=== PATIENT | female | born 1940 | race Caucasian/White ===

== ENCOUNTER 2020-04-27 09:11 | Emergency (ER) | payer MEDICARE, OTHER, SELFPAY ==
[2020-04-27 09:13] VITALS: BP 167/65; PULSE 65; RESP 18; TEMP 36.6; O2SAT 95; BMI 29.9
--- NOTE | 2020-04-27 09:16 | CT_ITS ---
STUDY: CT BRAIN WITHOUT CONTRAST REASON FOR EXAM: Female, 79 years old. FALL RADIATION DOSAGE (If Supplied By Facility): CTDIvol = ( 44.99 ) mGy, DLP = ( 779.24 ) mGycm TECHNIQUE: Transaxial CT imaging of the brain was performed without administration of intravenous contrast material. Individualized dose optimization techniques were used for this CT. COMPARISON: No relevant priors. FINDINGS: Normal soft tissue structures. Normal calvarium. There is moderate cerebral atrophy with widening of the extra-axial spaces and ventricular dilatation. There are areas of decreased attenuation within the white matter tracts of the supratentorial brain, consistent with microvascular disease changes. Normal basal ganglia and thalami. Normal brainstem. Normal cerebellum. There is no intracranial hemorrhage. There are no findings of an acute ischemic infarction. Normal visualized paranasal sinuses. CT/Brain/Head without Contrast IMPRESSION: Chronic involutional changes of the brain. Electronically Signed: Nirav Yanez MD at 10:12 EST Tel , Service support ,
--- NOTE | 2020-04-27 09:16 | CT_ITS ---
STUDY: CT CERVICAL SPINE WITHOUT CONTRAST REASON FOR EXAM: Female, 79 years old. FALL RADIATION DOSAGE (If Supplied By Facility): CTDIvol = ( 28.92 ) mGy, DLP = ( 604.92 ) mGycm TECHNIQUE: High resolution transaxial imaging was performed without contrast material. Sagittal and coronal images were reconstructed. Individualized dose optimization techniques were used for this CT. COMPARISON: None FINDINGS: Normal craniovertebral junction. Normal anterior atlantoaxial articulation. Normal odontoid process. There is straightening of the normal cervical lordosis. Normal vertebral bodies and posterior osseous elements. C2-3: Mild left facet hypertrophy with ankylosis of facet joint. No spinal stenosis or neural foraminal stenosis. C3-4: Normal endplates. Normal disc height and morphology. Normal central canal and intervertebral neuroforamina. C4-5: Normal endplates. Normal disc height and morphology. Normal central canal and intervertebral neuroforamina. C5-6: Normal endplates. Normal disc height and morphology. Normal central canal and intervertebral neuroforamina. C6-7: Normal endplates. Normal disc height and morphology. Normal central canal and intervertebral neuroforamina. C7-T1: Normal endplates. Normal disc height and morphology. Normal central canal and intervertebral neuroforamina. Normal visualized soft tissue structures. CT/Spine Cervical without Contras IMPRESSION: No acute fracture or subluxation. Straightening of the normal lordotic curvature possibly from muscular spasm. Electronically Signed: Nirav Yanez MD at 10:15 EST Tel , Service support ,
--- NOTE | 2020-04-27 09:16 | CT_ITS ---
STUDY: CT FACIAL BONES WITHOUT CONTRAST REASON FOR EXAM: Female, 79 years old. FALL RADIATION DOSAGE (If Supplied By Facility): CTDIvol = ( 29.38 ) mGy, DLP = ( 547.46 ) mGycm TECHNIQUE: The patient was scanned in a multi detector CT scanner. Sagittal and coronal images were reconstructed. Individualized dose optimization techniques were used for this CT. COMPARISON: None. FINDINGS: Normal soft tissue structures. Normal orbital owens and orbital contents. Normal nasal bones and anterior nasal spine. Normal facial bones. There are fractures through the mandibular condyles bilaterally which appear corticated consistent with chronic fractures. Clinical correlation is recommended. Normal visualized paranasal sinuses. CT/Sinus/Facial Bone IMPRESSION: Suspect chronic fractures of the mandibular condyles bilaterally without definite acute facial fracture. Clinical correlation is recommended. Electronically Signed: Nirav Yanez MD at 10:19 EST Tel , Service support ,
[2020-04-27] MEDS: Diphth,Pertuss(Acell),Tet Vac 0.5 ML Vial IM (09:21)
[2020-04-27] MEDS: Lidocaine 1% (20 ml mdv) 20 ML Vial 10 ML INFILT (09:22)
--- NOTE | 2020-04-27 09:31 | ED.DCSUM_ITS ---
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 Unknown how long she was on the ground but EMS states that nursing reported that multiple people were on their call light stating that she had just fallen. It was theorized by staff that she fell down to her knees and then struck her chin on the ground. She was able to get up and walk with assistance with the nurses. They note lacerations to the chin and lip. The patient states her jaw hurts. She states that her jaw does not seem to close appropriately. Past Medical History - Allergies and Home Meds Allergies/Adverse Reactions: Allergies Penicillins Allergy (Verified 04/27/20 09:18) Hives Primary Care Physician: Misbah James MD [Primary Care Provider] - Past Medical History: - - GERD diabetes hypertension hypercholesterolemia frequent falls. Lives: Group Home Smoking Status: Never smoker Drugs: None Review of Systems General: Denies: Chills, Fever, Sweats Eyes: Denies: Visual changes - bilaterally, Diplopia ENT: Denies: Rhinorrhea, Sore throat Cardiovascular: Denies: Chest pain, Palpitations Respiratory: Denies: Dyspnea, Cough, Dyspnea on exertion Gastrointestinal: Denies: Abdominal pain, Nausea, Vomiting, Diarrhea, Melena, Hematochezia Genitourinary: Denies: Dysuria, Hematuria, Frequency Musculoskeletal: Denies: Back pain, Extremity Pain Skin: Denies: Rash, Wounds Neurological: Denies: Headache, Weakness, Numbness Physical Exam Vital Signs/Narrative: Vital Signs Temp Pulse Resp BP Pulse Ox 04/27/20 09:13 97.8 F 65 18 167/65 H 95 Inital Vital Signs reviewed: Yes General: Well nourished, Well developed, Obese, No Acute Distress Head: Normocephalic, Trauma - There is a 1 cm chin laceration. There is 1/2 cm vertical philtrum laceration. There is associated contusion of the lip. Eyes: Perrl, EOMI ENT: Moist mucous membranes, No rhinorrhea, - - bilateral ttp and swelling at the TMJ. + Malocclusion and pain with opening closing. Midface appears stable. Neck: Supple, - - Tender to palpation posteriorly along the occiput and upper cervical spine. Cardiovascular: Regular rate, Regular rhythm, No murmurs Respiratory: No distress, CTA bilaterally, Chest nontender Abdomen: Soft, Nontender, Nondistended, Normal bowel sounds Back: Nontender, Normal Inspection Extremities: Nontender, No edema Skin: Normal color, No rash, Trauma - Contusion bilateral knees Neurological: Cranial nerves II-XII grossly intact, Normal Strength, Normal Sensation, Lethargic - Opens eyes to voice responds appropriately with yes no questions. Psychological: Normal affect, Normal Mood Diagnostic/Tx/Re-eval Clinical Impression(s) from Imaging Studies Brain CT 04/27/20 09:16 IMPRESSION: Chronic involutional changes of the brain. Electronically Signed: Nirav Yanez MD at 10:12 EST Tel , Service support , Cervical Spine CT 04/27/20 09:16 IMPRESSION: No acute fracture or subluxation. Straightening of the normal lordotic curvature possibly from muscular spasm. Electronically Signed: Nirav Yanez MD at 10:15 EST Tel , Service support , Facial/Sinus 04/27/20 09:16 IMPRESSION: Suspect chronic fractures of the mandibular condyles bilaterally without definite acute facial fracture. Clinical correlation is recommended. Electronically Signed: Nirav Yanez MD at 10:19 EST Tel , Service support , - Medical Decision Making The chin laceration was locally anesthetized using 1% lidocaine washed with Shur-Clens and explored. Was closed using 3 simple interrupted 6-0 Ethilon sutures. The philtrum laceration was also anesthetized using 1% lidocaine locally and then a single 6-0 Ethilon suture was placed after cleansing. Patient tolerated procedure well. Reviewing the CTs of her head and neck these are negative for acute. CT of the facial bones demonstrates bilateral mandibular condyle fractures. Possibly chronic. However the patient is swollen in the TMJ region notes pain there when she attempts to close and does appear to have a degree of malocclusion. [facility] states that she normally does not have any speaking or closing her jaw and can typically eat soft diet. Therefore I would conclude that this is most likely an acute fracture. We do not have maxillofacial plastic surgery here. I spoke with the patient she does not have a preference for trauma center. I spoke with [facility] and the patient will be transferred there. ED Disposition - Plan for ED Patient: Disposition: [facility] Diagnosis: Face lacerations, Mandibular fracture, closed, Contusion of knee Referrals: Misbah James MD [Primary Care Provider] -
[2020-04-27 11:24] VITALS: BP 173/99; PULSE 68; RESP 18; TEMP 36.4; O2SAT 99
== END 2020-04-27 12:02 | disposition short-term general hospital (02) ==
PROVIDERS: Emergency Provider Emergency Medicine; PCP Family Medicine
DX: S01.511A Laceration without foreign body of lip, initial encounter (principal); S01.81XA Laceration without foreign body of other part of head, initial encounter; S80.02XA Contusion of left knee, initial encounter; S80.01XA Contusion of right knee, initial encounter; W18.30XA Fall on same level, unspecified, initial encounter; Y93.89 Activity, other specified; Y92.129 Unspecified place in nursing home as the place of occurrence of the external cause; Y99.9 Unspecified external cause status; E11.9 Type 2 diabetes mellitus without complications; E78.00 Pure hypercholesterolemia, unspecified; I10 Essential (primary) hypertension; K21.9 Gastro-esophageal reflux disease without esophagitis; Z88.0 Allergy status to penicillin; E66.9 Obesity, unspecified; Z23 Encounter for immunization
CPT/HCPCS: 12011; 70450; 70486; 72125; 87426; 90715; 99285

== ENCOUNTER 2020-05-08 13:49 | Emergency (ER) | payer MEDICARE, OTHER, SELFPAY ==
[2020-05-08 13:49] VITALS: BP 125/57; PULSE 64; RESP 16; TEMP 36.7; O2SAT 98; BMI 35.9
--- NOTE | 2020-05-08 14:30 | ED.RN ---
[facility] REPORTS UNWITNESSED FALL OUT OF CHAIR. [facility] REPORTS CHRONIC PAIN TO RT ARM AND MANDIBLE FX FROM PREV FALL. DR GALINDO INFORMED.
--- NOTE | 2020-05-08 14:37 | CT_ITS ---
STUDY: CT BRAIN WITHOUT CONTRAST REASON FOR EXAM: Female, 79 years old. FALL, LAC TO FOREHEAD RADIATION DOSAGE (If Supplied By Facility): CTDIvol = ( 44.99 ) mGy, DLP = ( 782.05 ) mGycm TECHNIQUE: Transaxial CT imaging of the brain was performed without administration of intravenous contrast material. Individualized dose optimization techniques were used for this CT. COMPARISON: No relevant priors. FINDINGS: There is frontal soft tissue injury. Normal calvarium. There are acute bilateral mandibular condyle fractures. There is mild cerebral atrophy with widening of the extra-axial spaces and ventricular dilatation. There are areas of decreased attenuation within the white matter tracts of the supratentorial brain, consistent with microvascular disease changes. Normal basal ganglia and thalami. Normal brainstem. Normal cerebellum. There is no intracranial hemorrhage. There are no findings of an acute ischemic infarction. Normal visualized paranasal sinuses. CT/Brain/Head without Contrast IMPRESSION: Chronic involutional changes of the brain. Mandible fractures. Electronically Signed: Isaiah Roach MD at 15:48 EST , Service support ,
--- NOTE | 2020-05-08 14:39 | CT_ITS ---
STUDY: CT CERVICAL SPINE WITHOUT CONTRAST REASON FOR EXAM: Female, 79 years old. FALL, LAC TO FOREHEAD RADIATION DOSAGE (If Supplied By Facility): CTDIvol = ( 28.62 ) mGy, DLP = ( 537.70 ) mGycm TECHNIQUE: High resolution transaxial imaging was performed without contrast material. Sagittal and coronal images were reconstructed. Individualized dose optimization techniques were used for this CT. COMPARISON: None FINDINGS: Normal craniovertebral junction. There are degenerative changes of the anterior atlantoaxial articulation. Normal odontoid process. There is straightening of the normal cervical lordosis. There is no acute cervical fracture. There are acute bilateral mandible fractures. Normal vertebral bodies and posterior osseous elements. C2-3: Normal endplates. Normal disc height and morphology. Facet spurring on the left. Normal central canal and intervertebral neuroforamina. C3-4: Normal endplates. Normal disc height and morphology mild facet spurring. Central canal and intervertebral neuroforamina. C4-5: Normal endplates. Normal disc height and morphology. Normal central canal and intervertebral neuroforamina. C5-6: Normal endplates. Normal disc height and morphology. Normal central canal and intervertebral neuroforamina. C6-7: Normal endplates. Normal disc height and morphology. Normal central canal and intervertebral neuroforamina. C7-T1: Normal endplates. Normal disc height and morphology. Normal central canal and intervertebral neuroforamina. Normal visualized soft tissue structures. There are atherosclerotic calcifications. CT/Spine Cervical without Contras IMPRESSION: Mild degenerative change. No cervical spine fracture. Mandible fractures. Electronically Signed: Isaiah Roach MD at 15:51 EST , Service support ,
--- NOTE | 2020-05-08 14:40 | EKG12_ITS ---
Test Reason : FALL Blood Pressure : / mmHG Vent. Rate : 065 BPM Atrial Rate : 065 BPM P-R Int : 304 ms QRS Dur : 096 ms QT Int : 394 ms P-R-T Axes : -21 -48 -06 degrees QTc Int : 409 ms Sinus rhythm with 1st degree A-V block Left axis deviation Aleksandr- Septal infarct , age undetermined , cannot be excluded Abnormal ECG Confirmed by DEE DEE BIRD, MARRY ([id number]), book editor BOLA HUMPHRIES ([id number]) on 05/11/2020 10:36:58 AM Referred By: CAITLYN Confirmed By:MARRY FUNEZ MD
--- NOTE | 2020-05-08 15:30 | RAD_ITS ---
STUDY: X-RAY CHEST REASON FOR EXAM: Female, 79 years old. FALL, LACERATION TO HEAD AND RIGHT ARM PAIN TECHNIQUE: Single AP portable view of the chest. COMPARISON: None. FINDINGS: The lungs are clear and expanded. There is no demonstrated pleural abnormality. Normal size heart. Normal mediastinum and alvino. Normal visualized pulmonary arteries. There is atherosclerotic calcification of the aortic arch with tortuosity. There is demineralization of the osseous structures. There is right proximal humerus fracture status post ORIF. There is no demonstrated abnormality of the visualized soft tissue structures of the upper abdomen. RAD/Chest 1 View (Portable) IMPRESSION: Degenerative changes, as described above. No demonstrated acute cardiopulmonary process. Electronically Signed: Isaiah Roach MD at 15:57 EST , Service support ,
--- NOTE | 2020-05-08 15:30 | RAD_ITS ---
STUDY: X-RAY - RIGHT HUMERUS REASON FOR EXAM: Female, 79 years old. FALL, LACERATION TO HEAD AND RIGHT ARM PAIN TECHNIQUE: Frontal and lateral view(s) of the humerus. COMPARISON: None. FINDINGS: There is diffuse demineralization of the humerus. There is proximal humerus fracture status post ORIF with fixation plate and screws. There is no demonstrated soft tissue abnormality. RAD/Humerus min 2 Views IMPRESSION: Healing proximal humerus fracture status post ORIF. Electronically Signed: Isaiah Roach MD at 15:59 EST , Service support ,
--- NOTE | 2020-05-08 15:30 | RAD_ITS ---
STUDY: X-RAY - RIGHT RADIUS AND ULNA REASON FOR EXAM: Female, 79 years old. PAIN S/P FALL AT [facility] TECHNIQUE: 2 view(s) of the forearm. COMPARISON: None. FINDINGS: There is no demonstrated soft tissue swelling. There are vascular calcifications. There is demineralization of the radius. There is subtle lucency of the radial head with and probable artifact from overlapping structures versus fracture. There is demineralization of the ulna. RAD/Forearm 2 Views IMPRESSION: Demineralization. Lucency of the radial head with probable artifact from overlapping structures versus less likely fracture. Electronically Signed: Isaiah Roach MD at 16:01 EST , Service support ,
[2020-05-08 15:33] LABS: Absolute Lymphocyte Count 2.76 X10^3/uL (0.83-4.51); Absolute Neutrophil Count 4.1 X10^3/uL (2.0-7.7); Basophil# 0.02 X10^3/uL; Basophil% 0.2 % (0-1); Eosinophil# 0.73 X10^3/uL; Eosinophils% 8.6 % (0-5); Hematocrit 36.6 % (37-47); Hemoglobin 11.7 g/dL (12.0-15.0); Lymphocyte # 2.76 X10^3/ul (4.0); Lymphocyte % 32.7 % (19-41); Mean Corpuscular Hgb 29.7 pg (27.0-32.0); Mean Corpuscular Volume 92.9 fL (81-99); Mean Platelet Vol. 9.9 fl (6.2-12.0); Monocyte# 0.76 X10^3/uL; NRBC Flagged by Analyzer 0 % (0-5); Neutrophil # 4.13 X10^3/uL (2.7-7.7); Neutrophil % 48.9 % (47-70); Platelet Count 305 K/mm3 (150-450); RBC Distribution Width CV 14.6 % (11.6-14.6); RBC Distribution Width SD 49.5 fl (35.1-43.9); Red Blood Count 3.94 M/mm3 (4.2-5.4); White Blood Count 8.5 K/mm3 (4.4-11.0)
[2020-05-08 15:40] LABS: Anion Gap 4 (5-15); BUN 13 mg/dL (7-18); CPK Total, Creatine Kinase 40 U/L (26-192); Calcium,Total 9.7 mg/dL (8.5-10.1); Chloride 108 mmol/L (98-107); Creatinine, Serum 0.93 mg/dL (0.55-1.02); EST Glomerular Filtration Rate 62 mL/min (>60); Est Glom Filt Rate - Afr Amer 75 mL/min (>60); Estimated Creatinine Clearance 34.08 ml/min; Glucose 126 mg/dL (74-106); Potassium 4.5 mmol/L (3.5-5.1); Sodium Level 138 mmol/L (136-145)
[2020-05-08] MEDS: Lidocaine/Epi/Tetracaine 50 ML 1 APPLIC TOPICAL (16:00)
--- NOTE | 2020-05-08 16:04 | ED.DCSUM_ITS ---
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 Per report, staff walked by the room and saw her on the ground. Is no exactly clear how she fell. Patient did have a fall earlier this month where she broke her mandible. She is not on any anticoagulation. Patient did sustain a laceration to her forehead and is complain of pain in that area but denies any other complaints. On exam she does start to complain of right arm pain as well. Nursing staff does state that this seems to be more of a chronic complaint. No report of any recent fevers or change in mentation. Patient appears to be at her baseline. Past Medical History - Allergies and Home Meds Allergies/Adverse Reactions: Allergies Penicillins Allergy (Verified 05/08/20 13:53) Hives Primary Care Physician: Misbah James MD [Primary Care Provider] - Past Medical History: - - GERD, diabetes mellitus, hyperlipidemia, anxiety, l egally blind, dementia Lives: [facility] Smoking Status: Never smoker Review of Systems ROS: Unable to Obtain - Limited secondary to patient's dementia General: Denies: Chills, Fever Eyes: Reports: - - Legally blind Musculoskeletal: Reports: - - Right arm pain Skin: Reports: Abrasions - Forehead laceration. Denies: Rash, Wounds Neurological: Reports: Headache. Denies: Weakness Physical Exam Vital Signs/Narrative: Vital Signs Temp Pulse Resp BP Pulse Ox 05/08/20 13:49 98.0 F 64 16 125/57 H 98 Inital Vital Signs reviewed: Yes General: Well nourished, Well developed, No Acute Distress Head: Normocephalic, Trauma - forehead laceration ENT: Moist mucous membranes, No rhinorrhea, TM's clear, - - No hemo-tympanum, no septal hematoma Neck: Supple, Nontender Cardiovascular: Regular rate, Regular rhythm, No murmurs Respiratory: No distress, CTA bilaterally, Chest nontender Abdomen: Soft, Nontender, Nondistended, Normal bowel sounds Back: Nontender, Normal Inspection Extremities: No edema, Tenderness - Fuhs tenderness of the right extremity with no pinpoint area of pain Skin: Normal color, No rash, Trauma - 4 cm irregular full-thickness laceration in the middle of the forehead, no active bleeding Neurological: Alert, Cranial nerves II-XII grossly intact, Normal Strength, Normal Sensation, Disoriented - Oriented x1?this appears to be her baseline Psychological: Normal affect, Normal Mood Diagnostic/Tx/Re-eval Chest X-Ray - ED: 1 View, Read by ED Physician, Read by Radiologist, No Acute Disease Clinical Impression(s) from Imaging Studies Brain CT 05/08/20 14:37 IMPRESSION: Chronic involutional changes of the brain. Mandible fractures. Electronically Signed: Isaiah Roach MD at 15:48 EST , Service support , Cervical Spine CT 05/08/20 14:39 IMPRESSION: Mild degenerative change. No cervical spine fracture. Mandible fractures. Electronically Signed: Isaiah Roach MD at 15:51 EST , Service support , Chest X-Ray 05/08/20 15:30 IMPRESSION: Degenerative changes, as described above. No demonstrated acute cardiopulmonary process. Electronically Signed: Isaiah Roach MD at 15:57 EST , Service support , Forearm X-Ray 05/08/20 15:30 IMPRESSION: Demineralization. Lucency of the radial head with probable artifact from overlapping structures versus less likely fracture. Electronically Signed: Isaiah Roach MD at 16:01 EST , Service support , Humerus X-Ray 05/08/20 15:30 IMPRESSION: Healing proximal humerus fracture status post ORIF. Electronically Signed: Isaiah Roach MD at 15:59 EST , Service support , Laboratory Data 05/08/20 05/08/20 05/08/20 15:10 15:10 15:10 WBC 8.5 RBC 3.94 L Hgb 11.7 L Hct 36.6 L MCV 92.9 MCH 29.7 MCHC 32.0 RDW Std Deviation 49.5 H RDW Coeff of Naye 14.6 Plt Count 305 MPV 9.9 Immature Gran % (Auto) 0.600 Neut % (Auto) 48.9 Lymph % (Auto) 32.7 [place] % (Auto) 9.0 Eos % (Auto) 8.6 H Baso % (Auto) 0.2 Absolute Neuts (auto) 4.1 Absolute Lymphs (auto) 2.76 Nucleated RBC % 0 PT 13.0 INR 1.0 Sodium 138 Potassium 4.5 Chloride 108 H Carbon Dioxide 26.0 Anion Gap 4 L BUN 13 Creatinine 0.93 Estim Creat Clear Calc 34.08 Est GFR (MDRD) Af Amer 75 Est GFR (MDRD) Non-Af 62 BUN/Creatinine Ratio 14.0 Glucose 126 H Calcium 9.7 Total Creatine Kinase 40 Troponin I < 0.015 Cardiac Rehab Phase I Labs WBC 8.5 K/mm3 (4.4-11.0) 05/08/20 15:10 RBC 3.94 M/mm3 (4.2-5.4) L 05/08/20 15:10 Hgb 11.7 g/dL (12.0-15.0) L 05/08/20 15:10 Hct 36.6 % (37-47) L 05/08/20 15:10 MCV 92.9 fL (81-99) 05/08/20 15:10 MCH 29.7 pg (27.0-32.0) 05/08/20 15:10 MCHC 32.0 g/dL (32-36) 05/08/20 15:10 RDW Std Deviation 49.5 fl (35.1-43.9) H 05/08/20 15:10 RDW Coeff of Naye 14.6 % (11.6-14.6) 05/08/20 15:10 Plt Count 305 K/mm3 (150-450) 05/08/20 15:10 MPV 9.9 fl (6.2-12.0) 05/08/20 15:10 Immature Gran % (Auto) 0.600 % (0.0-0.9) 05/08/20 15:10 Neut % (Auto) 48.9 % (47-70) 05/08/20 15:10 Lymph % (Auto) 32.7 % (19-41) 05/08/20 15:10 [place] % (Auto) 9.0 % (0-10) 05/08/20 15:10 Eos % (Auto) 8.6 % (0-5) H 05/08/20 15:10 Baso % (Auto) 0.2 % (0-1) 05/08/20 15:10 Absolute Neuts (auto) 4.1 X10^3/uL (2.0-7.7) 05/08/20 15:10 Absolute Lymphs (auto) 2.76 X10^3/uL (0.83-4.51) 05/08/20 15:10 Nucleated RBC % 0 % (0-5) 05/08/20 15:10 PT 13.0 SECONDS (11.7-14.9) 05/08/20 15:10 INR 1.0 05/08/20 15:10 Sodium 138 mmol/L (136-145) 05/08/20 15:10 Potassium 4.5 mmol/L (3.5-5.1) 05/08/20 15:10 Chloride 108 mmol/L (98-107) H 05/08/20 15:10 Carbon Dioxide 26.0 mmol/L (21.0-32.0) 05/08/20 15:10 Anion Gap 4 (5-15) L 05/08/20 15:10 BUN 13 mg/dL (7-18) 05/08/20 15:10 Creatinine 0.93 mg/dL (0.55-1.02) 05/08/20 15:10 Estim Creat Clear Calc 34.08 ml/min 05/08/20 15:10 Est GFR (MDRD) Af Amer 75 mL/min (>60) 05/08/20 15:10 Est GFR (MDRD) Non-Af 62 mL/min (>60) 05/08/20 15:10 BUN/Creatinine Ratio 14.0 RATIO (10-20) 05/08/20 15:10 Glucose 126 mg/dL (74-106) H 05/08/20 15:10 Calcium 9.7 mg/dL (8.5-10.1) 05/08/20 15:10 Total Creatine Kinase 40 U/L (26-192) 05/08/20 15:10 Troponin I < 0.015 ng/mL (<0.045) 05/08/20 15:10 Urine Color Yellow (Yellow) 05/08/20 16:15 Urine Clarity Cloudy (Clear) 05/08/20 16:15 Urine pH 7.0 (5.0 - 8.0) 05/08/20 16:15 Ur Specific [place] 1.010 (1.002-1.030) 05/08/20 16:15 Urine Protein 15 mg/dl (Negative) H 05/08/20 16:15 Urine Glucose (UA) Normal mg/dl (Normal) 05/08/20 16:15 Urine Ketones Negative mg/dl (Negative) 05/08/20 16:15 Urine Occult Blood Negative /ul (Negative) 05/08/20 16:15 Urine Nitrite Positive (Negative) H 05/08/20 16:15 Urine Bilirubin Negative mg/dL (Negative) 05/08/20 16:15 Urine Urobilinogen Normal mg/dl (Normal) 05/08/20 16:15 Ur Leukocyte Esterase 100 /ul (Negative) H 05/08/20 16:15 Urine RBC 0 SEEN /hpf (0-5) 05/08/20 16:15 Urine WBC 10-25 SEEN /hpf (0-5) 05/08/20 16:15 Ur Squamous Epith Cells 0-5 SEEN /hpf (5-10) 05/08/20 16:15 Urine Bacteria 4+ /hpf (None Seen) 05/08/20 16:15 Urine Mucus 0 SEEN /hpf (<or=2+) 05/08/20 16:15 - Rhythm Strip Rhythm Strip: Sinus Rhythm Rate: 65 Ectopy: None - EKG Initial EKG Interpretation: Sinus Rhythm, - - Sinus rhythm with first-degree AV block with a IL interval of 304 Left axis deviation Normal QRS Normal ST segments - Medical Decision Making Patient is evaluated for head injury after an unwitnessed fall. Patient is a nursing facility. She does have a history of falls and dementia. As the fall was unwitnessed I did check lab work, urine, EKG and chest x-ray looking for other causes of her fall in case it was not mechanical. CT of the head and C- spine is also obtained. Patient is found to have a fibular fracture which was actually diagnosed from a prior fall earlier this month but no other acute process. See procedure note for laceration repair. In addition patient is found have a urinary tract infection. She does not have other findings consistent with sepsis and we treated with Keflex. Urine is sent for culture. Finally, x-rays of the right arm were obtained as patient has pain there. This does seem to have been going on for some time however. X-ray shows a possible area of lucency versus artifact of the right radial head. She does have tenderness there but is not pinpoint tenderness. There is no significant effusion and likely this is an incidental finding. Daughter is counseled that if she still having pain there and 7 to 10 days that she repeat x-ray. She is agreeable with this. She also agrees that she does not want any invasive treatment for her mother if possible given her dementia and advanced age. I think this is very reasonable. I did discuss the case with her daughter on the phone who is comfortable with this plan. Patient is discharged back to nursing [facility] given first dose of Keflex in the emergency room. Daughter was unaware of an allergy to penicillin and patient should tolerate supple splint. Procedures - Lacerations No standard instances Length: 1.57 in Depth: Skin Shape: Stellate Prep: Sterile Conditions, Chlorhexadine Laceration repair: Local Irrigated (ml): 100 Number of Sutures/Ball: 8 Suture Information: Vicryl - rapid, Simple, 5-0 ED Disposition - Plan for ED Patient: Disposition: Intermediate Facility Diagnosis: Unwitnessed fall, Forehead laceration, UTI (urinary tract infection) Instructions: ED Fall with Uncertain Cause, ED Laceration, Face: Stitches or Tape, ED Bladder Infection, Female (Adult) Prescriptions: Cephalexin [Keflex] 500 mg PO Q12 #14 cap Prescription Printed Referrals: Misbah James MD [Primary Care Provider] - Additional Instructions: The stitches are dissolvable and should come out on their own after approximately 7 days. They can removed at that point if desired. Marilu does appear to have a urinary tract infection was given first dose of Keflex in the emergency room. There was an area of likely artifact over the right radial head, should she continue to have pain of her right elbow I recommend a repeat x-ray in 10 days to look for occult fracture. She should continue to move her elbow regardless.
[2020-05-08 16:18] LABS: Mucous, Urine 0 SEEN /hpf (<or=2+); Red Blood Cells-Urine 0 SEEN /hpf (0-5)
[2020-05-08 16:40] LABS: Color, Urine Yellow (Yellow); Glucose, Dipstick Normal (Normal); Ketone-Dipstick Negative (Negative); Leukocyte Esterase-Dipstick 100 /ul (Negative); Nitrite-Dipstick Positive (Negative); Occult Blood-Urine Negative /ul (Negative); Protein-Dipstick 15 mg/dl (Negative); Urine Bilirubin Dipstick Negative (Negative); Urine Clarity Cloudy (Clear); Urine Urobilinogen Normal (Normal)
[2020-05-08] MEDS: Lidocaine 1% (2ml-nursery) 2 ML VIAL 5 ML INFILT (16:40)
--- NOTE | 2020-05-08 16:58 | ED.RN ---
[facility] called and updated on pt and discharge plan.
[2020-05-08 17:01] LABS: Bacteria 4+ /hpf (None Seen); Squamous Epithelial Cells - UA 0-5 SEEN /hpf (5-10); White Blood Cells 10-25 SEEN /hpf (0-5)
[2020-05-08 17:33] VITALS: BP 164/80; PULSE 76; RESP 20; O2SAT 97
[2020-05-08] MEDS: Cephalexin 250 MG Capsule 500 MG PO (17:33)
== END 2020-05-08 17:57 | disposition skilled nursing facility (03) ==
PROVIDERS: Emergency Provider Emergency Medicine; PCP Family Medicine
DX: S01.81XA Laceration without foreign body of other part of head, initial encounter (principal); W19.XXXA Unspecified fall, initial encounter; N39.0 Urinary tract infection, site not specified; E11.9 Type 2 diabetes mellitus without complications; K21.9 Gastro-esophageal reflux disease without esophagitis; E78.5 Hyperlipidemia, unspecified; F03.90 Unspecified dementia, unspecified severity, without behavioral disturbance, psychotic disturbance, mood disturbance, and anxiety; I44.0 Atrioventricular block, first degree; Z88.0 Allergy status to penicillin; M79.601 Pain in right arm
CPT/HCPCS: 12011; 70450; 71045; 72125; 73060; 73090; 80048; 81001; 82550; 84484; 85025; 85610; 87077; 87086; 87088; 87186; 93005; 99285; A4216